=== PATIENT | female | born 1985 | race Caucasian/White ===

== ENCOUNTER → 2017-03-26 | Outpatient (CLI) | payer OTHER | LOC: HPND 08:47 | PROVIDERS: ATTEND Obstetrics & Gynecology | DX: O36.5920 Maternal care for other known or suspected poor fetal growth, second trimester, not applicable or unspecified (principal) | CPT/HCPCS: 76816 ==

== ENCOUNTER → 2017-04-23 | Outpatient (CLI) | payer OTHER | LOC: HPND 14:29 | PROVIDERS: ATTEND Obstetrics & Gynecology | DX: O36.5930 Maternal care for other known or suspected poor fetal growth, third trimester, not applicable or unspecified (principal) | CPT/HCPCS: 76816 ==

== ENCOUNTER 2017-05-04 11:09 | Emergency (ER) | payer OTHER ==
--- NOTE | 2017-05-04 12:12 | PD ---
HPI Chief Complaint Possible elevated blood pressure Date Seen: May 04, 2017 Time Seen: 12:06 Travel History International Travel<30 Days: No Contact w/Intl Traveler<30Days: No Known Affected Area: No History of Present Illness HPI 31-year-old primigravida at 33 weeks 2 days gestation who was at the local pharmacy and checked her blood pressure and she thought it was high. She denies headache, visual changes, abdominal pain. She reports good movement. History Past Medical History Narrative Medical Mild asthma for which she uses albuterol Obstetric History Obstetric History Primigravida cared for by Dr. Cheng. Uncomplicated to this point. Past Surgical History Surgical History: No Previous Surgery Family History Family History: Negative Social History Alcohol Use: No Tobacco Use: No Substance Abuse: No Review of Systems Except as stated in HPI: all other systems reviewed are Neg Physical Exam Narrative GENERAL: Well-nourished, well-developed patient. SKIN: Warm and dry. HEAD: Normocephalic and atraumatic. EYES: No scleral icterus. No injection or drainage. ENT: No nasal drainage noted. Mucous membranes pink. Airway patent. NECK: Supple, trachea midline. No JVD. CARDIOVASCULAR: Regular rate and rhythm without murmurs, gallops, or rubs. RESPIRATORY: Breath sounds equal bilaterally. No accessory muscle use. ABDOMEN/GI: Abdomen soft, non-tender, bowel sounds present, no rebound, no guarding Gravid to [-] weeks size Fundal Height: [-] GENITOURINARY: External Genitalia: intact and normal in appearance BUS glands: [-] Cervix: [-] Dilatation: [-] Effacement: [-] Station: [-] Presentation: [-] Membranes: [intact or ruptured] Uterine Contractions: [No-] FHT's: Category: [-] Baseline: [-] Reactive: [-Yes] Variability: [-] Decels: [-] EXTREMITIES: No cyanosis or edema. BACK: Nontender without obvious deformity. No CVA tenderness. NEUROLOGICAL: Awake and alert. Motor and sensory grossly within normal limits. Five out of 5 muscle strength in all muscle groups. Normal speech. Data Data Vital Signs Reviewed: Yes MDM Medical Record Reviewed: Yes Narrative Course / MDM Assessment: 33+ week intrauterine without evidence of hypertension. Plan: Routine care was recommended. Signs and symptoms of PIH were reviewed. Diagnosis Diagnosis: Primary Impression: 33 weeks gestation of Additional Impression: rule out hypertension Disposition: 01 DISCHARGE HOME Condition: Good Yon Gauthier MD May 04, 2017 12:12
[2017-05-04 12:36] LABS: BACTERIA, URINE RARE /hpf; BLOOD, URINE NEG (NEG); COMMENT (UR) CULT NOT INDICATED; CULTURE IF INDICATED CULT NOT INDICATED; GLUCOSE,URINE NEG (NEG); KETONE, URINE NEG (NEG); MUCUS URINE FEW /lpf (OCC); NITRITE,URINE NEG (NEG); SQUAMOUS EPITHELIAL CELL URINE 1 /hpf (0-5)
[2017-05-04 12:38] LABS: URINE COLOR STRAW (YELLW/STRAW)
== END 2017-05-04 12:30 | disposition home or self-care (01) ==
LOC: HOBED 11:09
DX: Z34.93 Encounter for supervision of normal pregnancy, unspecified, third trimester (principal); J45.909 Unspecified asthma, uncomplicated; Z3A.33 33 weeks gestation of pregnancy
CPT/HCPCS: 59025; 81001

== ENCOUNTER → 2017-05-21 | Outpatient (CLI) | payer OTHER | LOC: HPND 08:52 | PROVIDERS: ATTEND Obstetrics & Gynecology | DX: O36.5930 Maternal care for other known or suspected poor fetal growth, third trimester, not applicable or unspecified (principal) | CPT/HCPCS: 76816 ==

== ENCOUNTER 2017-06-06 17:42 | Inpatient (IN) | payer OTHER ==
[~2017-06-06] VITALS: Ht 170.2 cm; Wt 98.0 kg
[2017-06-06] MEDS ORDERED: PRENTAB7 (18:20)
[2017-06-06] MEDS ORDERED: SODIUM CHLORIDE 0.9% FLUSH 10 ML FLUSH IV FLUSH PRN (18:30)
[2017-06-06] MEDS ORDERED: LACTATED RINGER'S 1000 ML INJ 1,000 ML IV PRN (18:30)
[2017-06-06] MEDS ORDERED: SODIUM CHLORID 0.9% 500 ML INJ 500 ML IV PRN (18:30)
[2017-06-06] MEDS ORDERED: SODIUM CHLOR 0.9% 1000 ML INJ 1,000 ML IV PRN (18:30)
--- NOTE | 2017-06-06 18:30 | HHI.HP ---
HPI Chief Complaint elevated blood pressure, new 2+edema, gestational hypertension, for term labor induction Date Seen: Jun 06, 2017 Travel History International Travel<30 Days: No Contact w/Intl Traveler<30Days: No Known Affected Area: No History of Present Illness HPI 31 yo G1 EDC 06/15/17, EGA 38w5d today, seen in office for 48h recheck after being seen Sunday with c/o new b/l LE pitting edema to shins, BP 138/88 with recheck 142/84. Pt was given precautions and sent for PIH lab which were wnl. On BP recheck today pressures remain elevated at 136/90. Diagnosis of gestational hypertension, d/w pt indication for delivery. C/o pelvic pressure but no regular contractions, pain 1/10 mild pelvic discomfort. Denies headache , RUQ pain, blurry vision. Endorses edema b/l lower extremities. No vaginal bleeding. Good movement. No leakage of fluid. 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 Alcohol Use: No Tobacco Use: No Substance Abuse: No Allergies-Medications (Allergen,Severity, Reaction): Coded Allergies: No Known Allergies (Verified Allergy, Severe, 05/04/17) Home Meds Reported Medications Pnv No.95/Ferrous Fum/Folic AC ( Vitamins Tablet) 28 Mg Iron-800 Mcg Tablet 06/06/17 Review of Systems General / Constitutional: Weight Gain, No: Fever, Chills, Other Eyes: No: Diploplia, Blurred Vision, Visual changes, Pain, Photophobia HENT: No: Headaches, Vertigo, Lightheadedness Cardiovascular: Edema, No: Irregular Rhythm, Chest Pain or Discomfort, Palpitations, Tachycardia, Syncope, Varicosities, Cyanosis Respiratory: No: Cough, Short of Breath, Other Gastrointestinal: No: Nausea, Vomiting, Diarrhea Genitourinary: Pelvic Pain, No: Decreased Urinary Output, Oliguria Musculoskeletal: Edema, No: Limited ROM, Weakness, Cramping, Pain Skin: No Rash, Itching (legs), No Dryness, No Lumps, No Change in Pigmentation , No Change in Nails, No Alopecia, No Lesions Neurologic: No: Weakness, Dizziness, Syncope, Focal Abnormalities, Coordination Problem, Headache, Slurred Speech, Seizures Psychiatric: No: Depression, Suicidal Ideations, Homicidal Ideation Endocrine: No: Heat Intolerance, Cold Intolerance, Polydipsia, Polyuria, Other Physical Exam Narrative GENERAL: Well-nourished, well-developed patient. Appears puffy in face, hands, ankles & feet SKIN: Warm and dry. HEAD: Normocephalic and atraumatic. EYES: No scleral icterus. No injection or drainage. ENT: No nasal drainage noted. Mucous membranes pink. Airway patent. NECK: Supple, trachea midline. No JVD. CARDIOVASCULAR: Regular rate and rhythm without murmurs, gallops, or rubs. RESPIRATORY: Breath sounds equal bilaterally. No accessory muscle use. BREASTS: deferred. ABDOMEN/GI: Abdomen soft, non-tender, bowel sounds present, no rebound, no guarding Gravid to [39] weeks size Fundal Height: [39] GENITOURINARY: External Genitalia: intact and normal in appearance BUS glands: [wnl] Cervix: [mid] Dilatation: [FT] Effacement: [30] Station: [-3] Presentation: [vtx] Membranes: [intact] Uterine Contractions: [none] FHT's: 150s in office EXTREMITIES: No cyanosis; +2 edema to shins b/l, pitting. BACK: Nontender without obvious deformity. No CVA tenderness. NEUROLOGICAL: Awake and alert. Motor and sensory grossly within normal limits. Five out of 5 muscle strength in all muscle groups. Normal speech. Caprini VTE Risk Assessment Caprini VTE Risk Assessment: No/Low Risk (score <= 1) VTE Pharm Contraindication: High risk for bleeding Caprini Risk Assessment Model Point Value = 1 Point Value = 2 Point Value = 3 Point Value = 5 Age 41-60 Minor surgery BMI > 25 kg/m2 Swollen legs Varicose veins or History of unexplained or recurrent spontaneous Oral contraceptives or hormone replacement Sepsis (< 1 month) Serious lung disease, including pneumonia (< 1 month) Abnormal pulmonary function Acute myocardial infarction Congestive heart failure (< 1 month) History of inflammatory bowel disease Medical patient at bed rest Age 61-74 Arthroscopic surgery Major open surgery (> 45 min) Laparoscopic surgery (> 45 min) Malignancy Confined to bed (> 72 hours) Immobilizing plaster cast Central venous access Age >= 75 History of VTE Family history of VTE Factor V Leiden Prothrombin [id number] Lupus anticoagulant Anticardiolipin antibodies Elevated serum homocysteine Heparin-induced thrombocytopenia Other congenital or acquired thrombophilia Stroke (< 1 month) Elective arthroplasty Hip, pelvis, or leg fracture Acute spinal cord injury (< 1 month) Prophylaxis Regimen Total Risk Factor Score Risk Level Prophylaxis Regimen 0-1 Low Early ambulation 2 Moderate Order ONE of the following: *Sequential Compression Device (SCD) *Heparin 5000 units SQ BID 3-4 Higher Order ONE of the following medications: *Heparin 5000 units SQ TID *Enoxaparin/Lovenox 40 mg SQ daily (WT < 150 kg, CrCl > 30 mL/min) *Enoxaparin/Lovenox 30 mg SQ daily (WT < 150 kg, CrCl > 10-29 mL/min) *Enoxaparin/Lovenox 30 mg SQ BID (WT < 150 kg, CrCl > 30 mL/min) AND/OR *Sequential Compression Device (SCD) 5 or more Highest Order ONE of the following medications: *Heparin 5000 units SQ TID (Preferred with Epidurals) *Enoxaparin/Lovenox 40 mg SQ daily (WT < 150 kg, CrCl > 30 mL/min) *Enoxaparin/Lovenox 30 mg SQ daily (WT < 150 kg, CrCl > 10-29 mL/min) *Enoxaparin/Lovenox 30 mg SQ BID (WT < 150 kg, CrCl > 30 mL/min) AND *Sequential Compression Device (SCD) Data Data Vital Signs Reviewed: Yes Orders Orders Admit To Inpatient (06/06/17 ) Code Status (06/06/17 18:15) Vital Signs (Adult) .Per protocol (06/06/17 18:15) Activity Oob Ad [place] (06/06/17 18:15) Heart (06/06/17 18:15) Amnioinfusion (06/06/17 18:15) Urinary Catheter Management .ONCE (06/06/17 18:15) Diet Liquid (06/06/17 Dinner) Lactated Ringer's 1000 Ml Inj (Lr 1000 M (06/06/17 18:15) Lactated Ringer's 1000 Ml Inj (Lr 1000 M (06/06/17 18:15) Sodium Chlorid 0.9% 500 Ml Inj (Ns 500 M (06/06/17 18:15) Sodium Chlor 0.9% 1000 Ml Inj (Ns 1000 M (06/06/17 18:35) Lidocaine 1% Inj (50 Ml) (Xylocaine 1% I (06/06/17 18:15) Citric Acid-Sodium Citrate Liq (Bicitra (06/06/17 18:15) Ondansetron Inj (Zofran Inj) (06/06/17 18:15) Fentanyl Inj (Fentanyl Inj) (06/06/17 18:15) Fentanyl Inj (Fentanyl Inj) (06/06/17 18:15) Complete Blood Count With Diff (06/06/17 18:15) Hold Clot (06/06/17 18:15) Urinalysis - C+S If Indicated (06/06/17 18:15) Drug Screen, Random Urine (06/06/17 18:15) Resp Oxygen Non Rebreathe Mask (06/06/17 ) ^ Epidural / Intrathecal Infus (06/06/17 18:15) Oxytocin 30 Units-500ml Premix (Pitocin (06/06/17 18:15) Lidocaine 1% Inj (50 Ml) (Xylocaine 1% I (06/06/17 18:15) Light Mineral Oil (Muri-Lube Oil) (06/06/17 18:15) ^ Labor Induction (06/06/17 18:15) ^ Vaginal Insert (06/06/17 18:15) ^ Vaginal Lavage (06/06/17 18:15) Heart (06/06/17 18:15) Sodium Chloride 0.9% Flush (Ns Flush) (06/06/17 21:00) Sodium Chloride 0.9% Flush (Ns Flush) (06/06/17 18:15) Dinoprostone Vag Insert (Cervidil Vag In (06/06/17 18:15) Intake + Output Q1H (06/06/17 18:15) Notify Parameters (06/06/17 18:15) Comprehensive Metabolic Panel (06/06/17 18:15) Uric Acid (06/06/17 18:15) Inpatient Certification (06/06/17 ) Specimen To Be Collected PRN (06/06/17 18:15) Specimen To Be Collected PRN (06/06/17 18:15) Group B Strep: Negative Assessment/Plan Problem List: (1) Gestational hypertension affecting first ICD Codes: O13.9 - Gestational [-induced] hypertension without significant proteinuria, unspecified trimester Status: Acute Assessment and Plan 31 yo G1 with coates iup at 38w5d admit for IOL due to gestational hypertension 1) IOL: unfavorable Scott score, pt aware of risks of failed induction, possibility of prolonged induction or need for ; verbalizes understanding and consents to induction; will plan cervidil overnight, re- evaluate in AM for additional methods as indicated 2) GHTN: new onset elevated BPs, none severe, PIH labs as outpt wnl 06/05/17; will repeat as inpatient; continue to monitor closely for need for medication or additional interventions 3) GBS negative 4) status: vertex, female; EFW 7#; had been measuring S<D in office but MFM eval 05/21/17 showed EFW 30% and AC 10%tile; +FHTs in office 5) dispo: not meeting criteria, anticipate d/c day #2-3 Discharge Planning day 2-3 Belkis Nolan MD Jun 06, 2017 18:30
[2017-06-06] MEDS ORDERED: LIDOCAINE HCL 1% 50 ML VIAL I-DERMAL PRN (18:45)
[2017-06-06] MEDS ORDERED: ONDANSETRON HCL 4 MG/2 ML VIAL IV PUSH PRN (18:45)
[2017-06-06] MEDS ORDERED: LIDOCAINE HCL 1% 50 ML VIAL INFIL PRN (18:45)
[2017-06-06] MEDS ORDERED: DINOPROSTONE 10 MG VAG INSERT VAGINAL ONE (18:45)
[2017-06-06] MEDS ORDERED: OXYTOCIN 30 UNITS-500ML PREMIX 500 ML IV ONE (18:45)
[2017-06-06] MEDS ORDERED: MINERAL OIL 10 ML VIAL TOPICAL PRN (18:45)
[2017-06-06] MEDS ORDERED: CITRIC ACID-SODIUM CITRATE LIQ 30 ML UDC PO SCH (18:45)
[2017-06-06 19:00] LABS: AUTOMATED NEUTROPHIL # 8.9 TH/MM3 (1.8-7.7); BASOPHIL % 0.2 % (0.0-2.0); EOSINOPHIL # 0.2 TH/MM3 (0-0.4); EOSINOPHIL % 1.8 % (0.0-4.0); HEMO FLAGS DIFF FINAL; LYMPH % 15.6 % (9.0-44.0); LYMPHOCYTE # 1.8 TH/MM3 (1.0-4.8); MEAN CELL VOLUME 75.1 FL (80.0-100.0); MEAN CORPUSCULAR HEMOGLOBIN 23.4 PG (27.0-34.0); MEAN CORPUSCULAR HGB CONC 31.1 % (32.0-36.0); MONO % 6.4 % (0.0-8.0); PLATELET COUNT 247 TH/MM3 (150-450); RED BLOOD COUNT 4.12 MIL/MM3 (4.00-5.30); RED CELL DISTRIBUTION WIDTH 18.2 % (11.6-17.2); WHITE BLOOD COUNT 11.7 TH/MM3 (4.0-11.0)
[2017-06-06 19:02] LABS: BLOOD, URINE NEG (NEG); COMMENT (UR) CULT NOT INDICATED; CULTURE IF INDICATED CULT NOT INDICATED; GLUCOSE,URINE NEG (NEG); KETONE, URINE 10 mg/dL (NEG); MUCUS URINE FEW /lpf (OCC); NITRITE,URINE NEG (NEG); PH, URINE 5.5 (5.0-8.5); SQUAMOUS EPITHELIAL CELL URINE 1 /hpf (0-5); URINE COLOR LIGHT-YELLOW (YELLW/STRAW)
[2017-06-06 19:30] VITALS: BP 121/82; PULSE 107; RESP 18; TEMP 98.8
[2017-06-06] MEDS: LACTATED RINGER'S 1000 ML INJ 1,000 ML IV SCH (20:24)
[2017-06-06] MEDS: SODIUM CHLORIDE 0.9% FLUSH 10 ML FLUSH IV FLUSH SCH (21:00)
[2017-06-06 21:48] LABS: AUTOMATED NEUTROPHIL # 8.4 TH/MM3 (1.8-7.7); BASOPHIL # 0.1 TH/MM3 (0-0.2); EOSINOPHIL # 0.2 TH/MM3 (0-0.4); EOSINOPHIL % 1.9 % (0.0-4.0); HEMATOCRIT 30.7 % (35.0-46.0); HEMO FLAGS DIFF FINAL; LYMPH % 18.9 % (9.0-44.0); LYMPHOCYTE # 2.3 TH/MM3 (1.0-4.8); MEAN CELL VOLUME 74.3 FL (80.0-100.0); MEAN CORPUSCULAR HEMOGLOBIN 23.1 PG (27.0-34.0); MONO % 7.9 % (0.0-8.0); NEUT % 70.3 % (16.0-70.0); PLATELET COUNT 260 TH/MM3 (150-450); RED BLOOD COUNT 4.13 MIL/MM3 (4.00-5.30); RED CELL DISTRIBUTION WIDTH 17.8 % (11.6-17.2); WHITE BLOOD COUNT 11.9 TH/MM3 (4.0-11.0)
[2017-06-06 22:17] LABS: ANION GAP 8 MEQ/L (5-15); AST (GOT) 29 U/L (15-37); BICARBONATE 21.9 MEQ/L (21.0-32.0); BLOOD UREA NITROGEN 6 MG/DL (7-18); CHLORIDE 107 MEQ/L (98-107); GLOMERULAR FILTRATION RATE 176 ML/MIN (>89); POTASSIUM 3.7 MEQ/L (3.5-5.1); SODIUM (NA) 137 MEQ/L (136-145); URIC ACID 4.1 MG/DL (2.6-6.0)
[2017-06-06 22:20] LABS: ALKALINE PHOSPHATASE 179 U/L (45-117); ALT (GPT) 21 U/L (10-53); TOTAL BILIRUBIN ADULT 0.3 MG/DL (0.2-1.0)
[2017-06-07] VITALS (17 sets, daily range): BP systolic 109–126; BP diastolic 61–87; PULSE 93–120; RESP 14–20; TEMP 97.6–98.4
[2017-06-07] MEDS: SODIUM CHLORIDE 0.9% FLUSH 10 ML FLUSH IV FLUSH SCH ×2 (09:00→22:32)
[2017-06-07] MEDS: LACTATED RINGER'S 1000 ML INJ 1,000 ML IV SCH ×2 (09:15→18:30)
[2017-06-07] MEDS: OXYTOCIN 30 UNITS/NS 500ML PREMIX IV SCH (09:46)
--- NOTE | 2017-06-07 12:07 | PD.LABORPN ---
Subjective Subjective Seen this morning at 7:30 after receiving report from head nurse, stating patient does not meet criteria for induction. Reviewed chart and discussed with Dr. Nolan. Venkatesh went from normal BPs to 140s over 90s in our office with a 6 pound weight gain and pitting edema in the office. She was sent here for cervidil last evening and labs and BPs reassuring. This am, cervix was long and closed. I reviewed situation with Venkatesh and her spouse. We did a oxytocin stress test while I was in the OR. Baby tolerated well with category 1 strip with some tachycardia. Cervix now 50/1/-2 and membranes stripped. All agree she is leaning toward pre eclampsia but we can take time to ripen cervix. GFM. no NV , JOSEPH or blurred vision. No RUQT. No leaking or bleeding. Objective Vital Signs Vital Signs Date Time Temp Pulse Resp B/P (MAP) Pulse Ox O2 Delivery O2 Flow Rate FiO2 06/07/17 11:00 120 122/79 (93) 06/07/17 10:40 108 112/70 (84) 06/07/17 10:20 115 119/74 (89) 06/07/17 10:00 118 123/74 (90) 06/07/17 09:43 117 114/71 (85) 06/07/17 07:51 98.4 18 06/07/17 07:22 104 121/80 (94) 06/07/17 04:43 93 06/07/17 04:30 93 16 119/70 (86) 06/07/17 04:30 98.1 Objective 1/50/-2 and stripped (GBS negative) pelvis clinically adequate EFW 7 pounds strip category one 1+ edema Weeks Gestation: 39 Gest Age Assessed Date: Jun 07, 2017 Gest Age Assessed Time: 12:05 Pt started active labor?: No Medical induction of labor?: Yes Medical induction start date: Jun 06, 2017 Medical induction start time: 18:00 Artificial rupture of membrane: No Assessment/Plan Problem List: (1) Gestational hypertension affecting first ICD Codes: O13.9 - Gestational [-induced] hypertension without significant proteinuria, unspecified trimester Status: Acute Plan: stop oxytocin eat lunch repeat cervidil yoga ball anticipate serial induction. Discussed in length with Dr. Nolan and parents. Susan Reyes MD Jun 07, 2017 12:07
[2017-06-07] MEDS ORDERED: DINOPROSTONE 10 MG VAG INSERT VAGINAL ONE (14:00)
[2017-06-08] VITALS (33 sets, daily range): BP systolic 98–135; BP diastolic 49–103; PULSE 93–129; RESP 14–18; TEMP 97.6–98.9
[2017-06-08] MEDS: LACTATED RINGER'S 1000 ML INJ 1,000 ML IV SCH ×4 (02:30→22:42)
[2017-06-08] MEDS ORDERED: OXYTOCIN 30 UNITS/NS 500ML PREMIX IV SCH (03:15)
[2017-06-08] MEDS: SODIUM CHLORIDE 0.9% FLUSH 10 ML FLUSH IV FLUSH SCH ×2 (09:00→20:30)
--- NOTE | 2017-06-08 09:33 | HHI.PR ---
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 FHTs: 130s, moderate variability, accelerations present, no decelerations TOCO: Rare contractions appreciated A/P 31-year-old G1 at 39 weeks and 0 days here today for induction of labor for gestational hypertension 1. Intrauterine : Category 1 tracing -Cephalic, GBS negative, EFW prior to 7.5-8 pounds. - Female fetus 2. Induction of labor: Secondary to #3, cervix unfavorable status post Cervidil 2 and low-dose Pitocin overnight, Cook cath placed this a.m., 80 cc 2 , did have bleeding that is more than normal following placement, status reassuring, placenta posterior. Will continue to observe for any iatrogenic abruption, repeat CBC in 4 hours. 3. Gestational hypertension: Negative HELLP labs and P:C 0.16. Blood pressures were normotensive overnight ,continue observation. 4. Microcytic anemia: Type and screen, repeat CBC at 2 PM today due to bleeding appreciated with balloon catheter placement, concern that could be concealed bleeding with balloon in place and will follow up Hb. Pepe Sellers MD Jun 08, 2017 09:33
[2017-06-08 14:45] LABS: AUTOMATED NEUTROPHIL # 10.1 TH/MM3 (1.8-7.7); BASOPHIL % 0.3 % (0.0-2.0); EOSINOPHIL # 0.3 TH/MM3 (0-0.4); HEMATOCRIT 28.6 % (35.0-46.0); HEMO FLAGS DIFF FINAL; LYMPH % 11.6 % (9.0-44.0); LYMPHOCYTE # 1.5 TH/MM3 (1.0-4.8); MEAN CELL VOLUME 74.6 FL (80.0-100.0); MEAN CORPUSCULAR HEMOGLOBIN 23.3 PG (27.0-34.0); MEAN CORPUSCULAR HGB CONC 31.2 % (32.0-36.0); MONO % 7.1 % (0.0-8.0); PLATELET COUNT 236 TH/MM3 (150-450); RED BLOOD COUNT 3.84 MIL/MM3 (4.00-5.30); WHITE BLOOD COUNT 12.8 TH/MM3 (4.0-11.0)
[2017-06-08] MEDS: OXYTOCIN 30 UNITS/NS 500ML PREMIX IV SCH (22:44)
[2017-06-09] VITALS (83 sets, daily range): BP systolic 94–140; BP diastolic 57–98; PULSE 91–121; RESP 14–20; TEMP 98–99.7
[2017-06-09 04:47] LABS: AUTOMATED NEUTROPHIL # 8.6 TH/MM3 (1.8-7.7); BASOPHIL # 0.1 TH/MM3 (0-0.2); EOSINOPHIL # 0.3 TH/MM3 (0-0.4); EOSINOPHIL % 2.8 % (0.0-4.0); HEMO FLAGS DIFF FINAL; LYMPH % 18.9 % (9.0-44.0); LYMPHOCYTE # 2.3 TH/MM3 (1.0-4.8); MEAN CORPUSCULAR HEMOGLOBIN 23.2 PG (27.0-34.0); MONO % 6.9 % (0.0-8.0); NEUT % 70.4 % (16.0-70.0); PLATELET COUNT 222 TH/MM3 (150-450); RED BLOOD COUNT 3.86 MIL/MM3 (4.00-5.30); WHITE BLOOD COUNT 12.2 TH/MM3 (4.0-11.0)
--- NOTE | 2017-06-09 07:48 | HHI.PR ---
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 O: Exam: 3 cm/50/-3/medium/posterior FHTs: 130s, moderate variability, accelerations present, no decelerations TOCO: Rare contractions appreciated A/P 31-year-old G1 at 39 weeks and 1 days here today for induction of labor for gestational hypertension 1. Intrauterine : Category 1 tracing -Cephalic, GBS negative, EFW prior to 7.5-8 pounds. - Female fetus 2. Induction of labor: Secondary to #3, s/p cervidl x 2, cook cath, AROM this check, clear fluid. Continue pit. Will desire epidural at some point, regular diet for breakfast then CLD. 3. Gestational hypertension: Negative HELLP labs and P:C 0.16. Blood pressures were normotensive overnight ,continue observation. 4. Microcytic anemia: T&C x2, repeat CBC this AM stable. Pepe Sellers MD Jun 09, 2017 07:48
[2017-06-09] MEDS ORDERED: fentaNYL 2MCG-BUPIV 0.125% INJ 100 ML ONE ×2 (11:34→18:30)
[2017-06-10] VITALS (25 sets, daily range): BP systolic 104–135; BP diastolic 61–85; PULSE 94–136; RESP 14–20; TEMP 98.2–100.2; O2SAT 96–99
[2017-06-10] MEDS ORDERED: fentaNYL 2MCG-BUPIV 0.125% INJ 100 ML ONE (00:53)
[2017-06-10] MEDS ORDERED: BUPIVACAINE HCL PF 0.25% 10 ML VIAL ONE (02:04)
[2017-06-10] MEDS ORDERED: AZITHROMYCIN INJ 500 MG in SODIUM CHLOR 0.9% 250 ML INJ 250 ML IV STA (02:37)
[2017-06-10] MEDS ORDERED: CITRIC ACID-SODIUM CITRATE LIQ 30 ML UDC PO SCH (02:45)
[2017-06-10] MEDS ORDERED: ceFAZolin 2 GM PREMIX 50 ML IV SCH (02:45)
[2017-06-10] MEDS ORDERED: LACTATED RINGER'S 1000 ML IV ONE (02:45)
[2017-06-10] MEDS ORDERED: LACTATED RINGER'S 1000 ML IV SCH (02:45)
[2017-06-10] MEDS ORDERED: METHYLERGONOVINE MALEATE 0.2 MG/ML VIAL ONE (02:50)
[2017-06-10] MEDS ORDERED: OXYTOCIN 10 UNIT/ML AMP ONE (02:50)
[2017-06-10] MEDS ORDERED: CARBOPROST TROMETHAMINE 250 MCG/ML VIAL ONE (02:50)
--- NOTE | 2017-06-10 03:26 | HHI.PR ---
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 Overall feels well O: Exam: Deferred, FHTs: 150s, moderate variability, accelerations present, no decelerations TOCO: Contractions every 3-5, M.D. less than 200 A/P 31-year-old G1 at 39 weeks and 2 days here today for induction of labor for gestational hypertension 1. Intrauterine : Category 1 tracing -Cephalic, GBS negative, EFW prior to 7.5-8 pounds. - Female fetus 2. Failed induction of labor: s/p cervidl x 2, cook cath, AROM on 06/09 at 0730 , no change and signicant caput per nursing, comfortable with epidural. - consented for . Will have uterotonics in room, ancef and azithro for ppx. Pt has had low grade temp, nothing diagnostic of intra-amniotic infection, however patient has risk factors for this, will continue to monitor following delivery. 3. Gestational hypertension: Negative HELLP labs and P:C 0.16. Blood pressures were normotensive overnight ,continue observation. 4. Microcytic anemia: T&C x2, repeat CBC yesterday AM stable. Pepe Sellers MD Jun 10, 2017 03:26
[2017-06-10] MEDS ORDERED: ACETAMINOPHEN 1000 MG/100 ML 100 ML IV ONE (04:15)
[2017-06-10] MEDS ORDERED: MEPERIDINE HCL 25 MG/ML VIAL ONE (04:15)
[2017-06-10] MEDS ORDERED: ACETAMINOPHEN 325 MG TAB PO PRN (04:45)
[2017-06-10] MEDS ORDERED: KETOROLAC TROMETHAMINE 60 MG/2 ML (IM) VIAL IM PRN (04:45)
[2017-06-10] MEDS ORDERED: ONDANSETRON HCL 4 MG/2 ML VIAL IV PUSH PRN (04:45)
[2017-06-10] MEDS ORDERED: SODIUM CHLORIDE 0.9% FLUSH 10 ML FLUSH IV FLUSH PRN (04:45)
[2017-06-10] MEDS ORDERED: SIMETHICONE 80 MG CHEWABLE TAB PO PRN (04:45)
[2017-06-10] MEDS ORDERED: OXYTOCIN 30 UNITS-500ML PREMIX 500 ML IV ONE (04:45)
[2017-06-10] MEDS ORDERED: ZOLPIDEM TARTRATE 5 MG TAB PO PRN (04:45)
--- NOTE | 2017-06-10 04:51 | PD.OB.DELI ---
Procedure Note Section Procedure Pre Op Diagnosis: (1) Failed induction of labor (2) Gestational hypertension affecting first (3) Term Post Op Diagnosis: (1) Gestational hypertension affecting first (2) Failed induction of labor (3) Term Performed by Pepe Sellers Procedure: Primary Low Transverse Sec Indication for delivery: Other (failed IOL) Previous condition: None Informed consent obtained: For anesthesia, For procedure Confirmed correct: Patient, Procedure, Site, Time-out taken Anesthesia: Epidural Medication prior to procedure: As documented in eMAR, Antibiotics, IV (2g Ancef & 500mg IV azithro) Monitoring during procedure: Blood pressure monitoring, Pulse oximetry Urinary catheter: Inserted using sterile technique, ml urine output (200, clear ) Sterile preparation: In usual fashion Position: Supine with wedge to left side Operative Features Skin Incision: Pfannenstiel Uterine Incision: Low transverse w/knife / blunt ext Membranes Ruptured: Previously (AROM on 06/09/17 at 0739), Appearance of fluid (clear) Delivery date: Jun 10, 2017 Delivery time: 03:47 Delivery of infant: Uneventful Infant: Female, Single One Minute : 7 Five Minute : 8 Weight: 3150g Status of infant: Viable, Cord blood Placenta delivered: Intact (3VC) Medications: Antibiotics (as above), Oxytocin, Other (IM 0.2mg Methergine) Estimated blood loss: 600 Procedure tolerated: Well Maternal Complications: Uterine atony Maternal Condition: Stable Condition: Stable Procedure in detail see dictated note, # [id number] Pepe Sellers MD Jun 10, 2017 04:51
[2017-06-10] MEDS ORDERED: KETOROLAC TROMETHAMINE 30 MG/ML (IVP) VIAL ONE (05:35)
[2017-06-10] MEDS: KETOROLAC TROMETHAMINE 60 MG/2 ML (IM) VIAL IM SCH ×3 (05:40→14:53)
--- NOTE | 2017-06-10 06:50 | MP ---
cc: ALISON CASTRO MD DATE OF : 1985 DATE OF SURGERY: 06/10/2017 PREOPERATIVE DIAGNOSIS: 1. Intrauterine at 39 weeks, two days. 2. Failed induction of labor. 3. Gestational hypertension. 4. Anemia POSTOPERATIVE DIAGNOSIS: 1. Same as above and below 2. Status post delivery via section. OPERATION: Primary low transverse section. SURGEON: Dr. Alison Castro MANAGER CODING SURGEON: None. FINDINGS: 1. Viable female at 0347, Apgars 7 and 8, normal anatomy, intact placenta, three vessel cord, 0348. 2. Normal intra-abdominal anatomy, uterus, bilateral fallopian tubes normal appearing. 3. Uterine atony. ANTIBIOTICS: 2g Ancef and 500 milligrams IV azithromycin preoperatively. SPECIMEN: Placenta to disposal. ANESTHESIA: Epidural. ESTIMATED BLOOD LOSS: 600 cc URINE OUTPUT: 200 cc clear via Brewer. IV FLUIDS: 1100 cc lactated Ringer's and Pitocin. MEDICATIONS: 0.2 milligrams IM Methergine for uterine atony. DVT PROPHYLAXIS Sequential compression devices. TIME OUT: Done. COUNTS: Correct x2. COMPLICATIONS: None. DISPOSITION: Stable to PACU. INDICATIONS: This patient is a 31 year-old G1, now P1-0-0-1, who presented four days ago for induction of labor secondary to a diagnosis of gestational hypertension. Her induction began with Cervidil. She received two doses, then A Cook catheter was placed. She was artificially ruptured after removal with clear fluid and began Pitocin. This was continued overnight and the patient's cervix remained unchanged at 5/50/-3, with significant caput, in addition she never reached adequate MVUs. The patient offered continued Pitocin versus and the patient desired . DESCRIPTION OF PROCEDURE: The patient was positioned in left lateral tilt. The abdomen was prepped and draped in sterile fashion. Brewer was inserted. Anesthesia was found to be adequate. Pfannenstiel incision was made and sharply dissected down to the fascia which was nicked on either side of the midline and extended bilaterally with Quezada scissors, dissected off the rectus muscles superiorly and inferiorly without difficulty. The peritoneal cavity was entered digitally and extended laterally with blunt traction. A bladder flap was developed with Metzenbaum scissors in the lower uterine segment and a low transverse hysterotomy was made in a curvilinear fashion, extended in a cephalad caudal fashion. Physician's hand was inserted into the uterine cavity and head was elevated to the hysterotomy and with fundal pressure the head was delivered without difficulty followed by gentle downward and upward guidance for the anterior and posterior shoulders respectively and the torso and lower extremities were delivered with ease. The had spontaneous cry. The cord was clamped and cut. The placenta was delivered with traction and uterine massage. The uterus was exteriorized and cleared for clot and debris, and closed with a single running locking layer of 0 Vicryl. There was some oozing medial to the right edge and hemostasis was achieved with [id number] 0 Vicryl. The uterus was returned to the abdomen. The pericolic gutters were irrigated and the hysterotomy was found to be hemostatic. The fascia was closed with 0 Vicryl from left to right in a running unlocked fashion. The subcutaneous tissue was irrigated. Hemostasis was appreciated. The subcutaneous tissue was reapproximated with running 2-0 Vicryl and the skin was closed with 4-0 Monocryl in a subcuticular fashion. Steri-Strips and dressings were applied. The patient tolerated the procedure well and was transferred to PACU in stable condition. MD AMANDA Mcdowell/MARJORIE /4:44 AM /5:47 AM MTDZechariah
--- NOTE | 2017-06-10 08:13 | HHI.OB ---
Subjective Post Operative Day: 0 Remarks doing well, pain controlled, no complaints, not much appetite yet, cardenas in and SCDs on. Objective Vitals/I&O Vital Signs Date Time Temp Pulse Resp B/P (MAP) Pulse Ox O2 Delivery O2 Flow Rate FiO2 06/10/17 06:35 130/84 (99) 06/10/17 06:35 99.0 106 18 97 06/10/17 05:50 18 06/10/17 05:45 94 111/68 (82) 97 06/10/17 05:35 18 06/10/17 05:35 98.9 97 116/65 (82) 99 06/10/17 05:20 18 06/10/17 05:20 96 06/10/17 05:18 113 115/61 (79) 06/10/17 05:05 16 06/10/17 05:05 96 06/10/17 05:05 112 104/67 (79) 06/10/17 04:50 98 06/10/17 04:50 118/66 (83) 06/10/17 04:50 114 18 06/10/17 04:36 100.2 20 06/10/17 04:35 100.2 20 06/10/17 04:35 118 128/64 (85) 06/10/17 04:35 99 06/10/17 02:59 116 135/82 (99) 06/10/17 02:58 99.7 20 06/10/17 02:13 99.9 18 06/10/17 02:12 136 117/64 (81) 06/10/17 02:00 99.9 18 06/10/17 01:57 108 119/78 (92) 06/10/17 01:33 18 06/10/17 01:15 18 06/10/17 01:04 110 131/85 (100) 06/10/17 01:04 110 131/85 (100) 06/10/17 00:30 18 06/10/17 00:27 108 123/79 (94) 06/09/17 23:45 99.4 06/09/17 23:45 18 06/09/17 23:36 102 117/73 (88) 06/09/17 23:15 18 06/09/17 23:06 114 134/89 (104) 06/09/17 23:00 18 06/09/17 22:45 104 96/63 (74) 06/09/17 22:08 98.1 06/09/17 22:08 106 96/64 (75) 06/09/17 21:33 110 112/73 (86) 06/09/17 20:57 98 109/63 (78) 06/09/17 20:45 18 06/09/17 20:30 98 110/64 (79) 06/09/17 20:15 16 06/09/17 20:12 100 112/71 (85) 06/09/17 20:00 16 06/09/17 19:45 102 18 120/82 (95) 06/09/17 19:35 98.0 06/09/17 19:30 102 123/76 (92) 06/09/17 19:15 108 120/85 (97) 06/09/17 19:00 103 115/78 (90) 06/09/17 18:45 108 128/84 (99) 06/09/17 18:30 111 134/88 (103) 06/09/17 18:28 99.7 20 06/09/17 18:15 107 137/91 (106) 06/09/17 18:00 114 140/82 (101) 06/09/17 17:45 111 129/87 (101) 06/09/17 17:30 104 118/82 (94) 06/09/17 17:15 104 124/78 (93) 06/09/17 17:00 107 124/77 (93) 06/09/17 16:45 117 128/83 (98) 06/09/17 16:30 106 130/84 (99) 06/09/17 16:15 99.2 20 06/09/17 16:15 102 123/86 (98) 06/09/17 16:00 97 102/59 (73) 06/09/17 15:45 100 104/64 (77) 06/09/17 15:30 100 103/60 (74) 06/09/17 15:15 103 108/67 (81) 06/09/17 15:02 99.1 18 06/09/17 15:00 105 128/89 (102) 06/09/17 14:45 108 131/85 (100) 06/09/17 14:30 95 109/76 (87) 06/09/17 14:15 97 112/80 (91) 06/09/17 14:00 100 114/73 (87) 06/09/17 13:45 102 126/86 (99) 06/09/17 13:30 107 130/76 (94) 06/09/17 13:21 109 123/79 (94) 06/09/17 13:15 120 119/73 (88) 06/09/17 13:00 105 114/73 (87) 06/09/17 12:48 120 135/85 (102) 06/09/17 12:45 101 120/81 (94) 06/09/17 12:45 110 06/09/17 12:42 91 125/68 (87) 06/09/17 12:40 106 06/09/17 12:39 114 121/71 (88) 06/09/17 12:36 103 118/72 (87) 06/09/17 12:35 113 06/09/17 12:33 107 108/80 (89) 06/09/17 12:30 112 104/74 (84) 06/09/17 12:30 111 06/09/17 12:27 116 95/75 (82) 06/09/17 12:25 117 06/09/17 12:24 112 123/79 (94) 06/09/17 12:20 121 06/09/17 12:18 124/78 (93) 06/09/17 12:18 121 06/09/17 12:15 117 132/78 (96) 06/09/17 12:15 111 06/09/17 12:08 113 120/98 (105) 06/09/17 12:05 121 136/92 (107) 06/09/17 11:40 98.2 18 06/09/17 11:30 98 119/82 (94) 06/09/17 11:00 110 126/86 (99) 06/09/17 10:30 111 129/97 (108) 06/09/17 10:00 103 124/80 (95) 06/09/17 09:30 113 115/73 (87) 06/09/17 09:24 109 119/70 (86) 06/09/17 09:24 98.3 18 06/09/17 09:15 109 128/84 (99) 06/09/17 09:00 109 140/93 (109) 06/09/17 08:45 99 131/86 (101) 06/09/17 08:30 100 135/90 (105) 06/09/17 08:15 102 121/80 (94) Result Diagram: 06/09/17 0430 06/06/173 Objective Remarks GENERAL: Well-nourished, well-developed patient. CARDIOVASCULAR: Regular rate and rhythm without murmurs, gallops, or rubs. RESPIRATORY: Breath sounds equal bilaterally. No accessory muscle use. ABDOMEN/GI: Abdomen soft, non-tender, bowel sounds present. bandage: Clean, dry and intact. Fundus: Firm, non-tender at umbilicus. GENITOURINARY: Light to moderate bleeding. EXTREMITIES: No cyanosis or edema, non-tender, without signs of DVT. Medications and IVs Current Medications Medications (Trade) Dose Ordered Sig/Demarco Route Start Time Stop Time Status Last Admin (Bicitra Liq) 30 ml CABLE ASSEMBLER AND SWAGER PO 06/06/17 18:45 06/10/17 18:44 (Bicitra Liq) 30 ml CABLE ASSEMBLER AND SWAGER PO 06/10/17 02:45 06/13/17 02:44 Cefazolin Sodium/ Dextrose 50 ml @ 100 mls/hr CABLE ASSEMBLER AND SWAGER IV 06/10/17 02:45 06/13/17 02:44 Lactated Ringer's 1,000 ml @ 100 mls/hr Q10H IV 06/10/17 09:32 06/11/17 05:31 Oxytocin 500 ml @ 100 mls/hr ONCE ONCE IV 06/10/17 04:45 06/10/17 09:44 Oxytocin 500 ml @ 100 mls/hr UNSCH X1 PRN IV 06/10/17 14:45 06/11/17 14:44 (NS Flush) 2 ml BID IV FLUSH 06/10/17 09:00 (NS Flush) 2 ml UNSCH PRN IV FLUSH 06/10/17 04:45 (Mylicon Chew) 80 mg QID PRN PO 06/10/17 04:45 (Tylenol) 650 mg Q6H PRN PO 06/10/17 04:45 (Motrin) 600 mg Q6H PRN PO 06/10/17 04:45 (Toradol Inj) 60 mg UNSCH X1 PRN IM 06/10/17 04:45 06/11/17 04:44 (Toradol Inj) 30 mg Q6H IM 06/10/17 04:45 06/11/17 04:44 06/10/17 05:40 (Percocet 5-325 Mg) 1 tab Q4H PRN PO 06/10/17 04:45 (Percocet 5-325 Mg) 2 tab Q4H PRN PO 06/10/17 04:45 (Cristina-Colace) 2 tab Q12H PRN PO 06/10/17 04:45 (Ambien) 5 mg HS PRN PO 06/10/17 04:45 (M-M-R Ii Inj) 0.5 ml ONCE ONCE SQ 06/11/17 16:00 06/11/17 16:01 (Boostrix Inj) 0.5 ml ONCE ONCE IM 06/11/17 16:00 06/11/17 16:01 (Zofran Inj) 4 mg Q6H PRN IV PUSH 06/10/17 04:45 Assessment/Plan Problem List: (1) Gestational hypertension affecting first ICD Codes: O13.9 - Gestational [-induced] hypertension without significant proteinuria, unspecified trimester Status: Acute Plan: stop oxytocin eat lunch repeat cervidil yoga ball anticipate serial induction. Discussed in length with Dr. Nolan and parents. Assessment and Plan 31-year-old s/p Primary LTCS at 39w2d for failed IOL for GHTN. 1. POD #0: VSS, output appropriate, CBC later today, -female -pt w/ low grade temp, risks for chorio, will continue to follow vitals may need gent / clinda. 2. Gestational hypertension: BPS normotensive. 3. Microcytic anemia: T&C x2. Discharge Planning day 2-3 Pepe Sellers MD Jun 10, 2017 08:13
[2017-06-10] MEDS: SODIUM CHLORIDE 0.9% FLUSH 10 ML FLUSH IV FLUSH SCH (09:00)
[2017-06-10] MEDS ORDERED: LACTATED RINGER'S 1000 ML INJ 1,000 ML IV SCH (09:32)
[2017-06-10] MEDS ORDERED: OXYTOCIN 30 UNITS-500ML PREMIX 500 ML IV PRN (14:45)
[2017-06-10] MEDS: oxyCODONE/ACETAMINOPHEN 5 MG/325 MG TAB PO PRN ×2 (16:54→22:56)
[2017-06-10] MEDS: DOCUSATE SODIUM 50 MG/SENNA 8.6 MG TAB PO PRN (16:54)
[2017-06-10] MEDS: IBUPROFEN 600 MG TAB PO PRN ×2 (16:54→22:56)
[2017-06-10 20:27] LABS: AUTOMATED NEUTROPHIL # 15.6 TH/MM3 (1.8-7.7); BASOPHIL % 0.1 % (0.0-2.0); EOSINOPHIL % 0.1 % (0.0-4.0); HEMATOCRIT 27.7 % (35.0-46.0); HEMO FLAGS DIFF FINAL; LYMPH % 11.2 % (9.0-44.0); LYMPHOCYTE # 2.1 TH/MM3 (1.0-4.8); MEAN CORPUSCULAR HEMOGLOBIN 22.6 PG (27.0-34.0); MEAN CORPUSCULAR HGB CONC 30.5 % (32.0-36.0); MONO % 6.8 % (0.0-8.0); NEUT % 81.8 % (16.0-70.0); PLATELET COUNT 292 TH/MM3 (150-450); RED BLOOD COUNT 3.74 MIL/MM3 (4.00-5.30); WHITE BLOOD COUNT 19.1 TH/MM3 (4.0-11.0)
[2017-06-11] VITALS: BP 98/68; PULSE 95; RESP 18; TEMP 98.8
[2017-06-11 04:00] VITALS: BP 117/70; PULSE 96; RESP 18; TEMP 98.2
[2017-06-11] MEDS: oxyCODONE/ACETAMINOPHEN 5 MG/325 MG TAB PO PRN ×4 (05:11→21:30)
[2017-06-11] MEDS: IBUPROFEN 600 MG TAB PO PRN ×4 (05:11→23:20)
[2017-06-11] MEDS: DOCUSATE SODIUM 50 MG/SENNA 8.6 MG TAB PO PRN ×2 (05:11→21:30)
[2017-06-11 07:39] VITALS: BP 97/61; PULSE 80; RESP 16; TEMP 98.2
--- NOTE | 2017-06-11 08:26 | HHI.OB ---
Subjective Post Operative Day: 1 Remarks doing well Objective Vitals/I&O Vital Signs Date Time Temp Pulse Resp B/P (MAP) Pulse Ox O2 Delivery O2 Flow Rate FiO2 06/11/17 07:39 98.2 80 16 97/61 (73) 06/11/17 04:47 18 06/11/17 04:00 98.2 18 06/11/17 04:00 96 117/70 (86) 06/11/17 00:00 95 98/68 (78) 06/11/17 00:00 98.8 18 06/10/17 19:28 98.3 14 06/10/17 19:27 100 118/67 (84) 06/10/17 16:52 99.2 112 18 126/77 (93) 06/10/17 15:00 99.2 112 16 126/77 (93) Result Diagram: 06/10/171955 Objective Remarks GENERAL: Well-nourished, well-developed patient. CARDIOVASCULAR: Regular rate and rhythm without murmurs, gallops, or rubs. RESPIRATORY: Breath sounds equal bilaterally. No accessory muscle use. ABDOMEN/GI: Abdomen soft, non-tender, bowel sounds present. bandage: Clean, dry and intact. Fundus: Firm, non-tender at umbilicus. GENITOURINARY: Light to moderate bleeding. EXTREMITIES: No cyanosis or edema, non-tender, without signs of DVT. Medications and IVs Current Medications Medications (Trade) Dose Ordered Sig/Demarco Route Start Time Stop Time Status Last Admin (Bicitra Liq) 30 ml CLAY PRODUCTS MACHINE OPERATOR PO 06/10/17 02:45 06/13/17 02:44 Cefazolin Sodium/ Dextrose 50 ml @ 100 mls/hr CLAY PRODU[employer] MACHINE OPERATOR IV 06/10/17 02:45 06/13/17 02:44 Oxytocin 500 ml @ 100 mls/hr UNSCH X1 PRN IV 06/10/17 14:45 06/11/17 14:44 (NS Flush) 2 ml BID IV FLUSH 06/10/17 09:00 (NS Flush) 2 ml UNSCH PRN IV FLUSH 06/10/17 04:45 (Mylicon Chew) 80 mg QID PRN PO 06/10/17 04:45 (Tylenol) 650 mg Q6H PRN PO 06/10/17 04:45 (Motrin) 600 mg Q6H PRN PO 06/10/17 04:45 06/11/17 05:11 (Percocet 5-325 Mg) 1 tab Q4H PRN PO 06/10/17 04:45 06/10/17 16:54 (Percocet 5-325 Mg) 2 tab Q4H PRN PO 06/10/17 04:45 06/11/17 05:11 (Cristina-Colace) 2 tab Q12H PRN PO 06/10/17 04:45 06/11/17 05:11 (Ambien) 5 mg HS PRN PO 06/10/17 04:45 (M-M-R Ii Inj) 0.5 ml ONCE ONCE SQ 06/11/17 16:00 06/11/17 16:01 (Boostrix Inj) 0.5 ml ONCE ONCE IM 06/11/17 16:00 06/11/17 16:01 (Zofran Inj) 4 mg Q6H PRN IV PUSH 06/10/17 04:45 Assessment/Plan Problem List: (1) Gestational hypertension affecting first ICD Codes: O13.9 - Gestational [-induced] hypertension without significant proteinuria, unspecified trimester Status: Acute Assessment and Plan 31-year-old s/p Primary LTCS at 39w2d for failed IOL for GHTN POD #1 OOB, routine post op care, BP low this am. Discharge Planning day 2-3 Attending Attestation pt seen by Masha Mercado MD Jun 11, 2017 08:26
[2017-06-11] MEDS: SODIUM CHLORIDE 0.9% FLUSH 10 ML FLUSH IV FLUSH SCH (09:00)
[2017-06-11 14:53] VITALS: BP 131/82; PULSE 89; RESP 16; TEMP 97.5
[2017-06-11] MEDS ORDERED: DIPHTH/TETANUS/ACEL PERTUSSIS (BOOSTER) 0.5 ML VIAL/PFS IM ONE (16:00)
[2017-06-11] MEDS ORDERED: MEASLES, MUMPS, RUBELLA VACCINE 0.5 ML VIAL SQ ONE (16:00)
[2017-06-11 21:30] VITALS: TEMP 98.1; O2SAT 100
[2017-06-11 22:00] VITALS: BP 136/77; PULSE 103; RESP 20
[2017-06-12] MEDS: oxyCODONE/ACETAMINOPHEN 5 MG/325 MG TAB PO PRN ×3 (02:50→12:38)
[2017-06-12] MEDS: IBUPROFEN 600 MG TAB PO PRN ×2 (06:27→12:38)
[2017-06-12 07:30] VITALS: BP 117/76; PULSE 91; RESP 18; TEMP 98.6
--- NOTE | 2017-06-12 07:46 | HHI.OB ---
Subjective Post Operative Day: 2 Remarks s/p primary LTCD for failed labor induction for GHTN at term (39w2d) Objective Vitals/I&O Vital Signs Date Time Temp Pulse Resp B/P (MAP) Pulse Ox O2 Delivery O2 Flow Rate FiO2 06/11/17 22:00 103 20 136/77 (96) 06/11/17 21:30 98.1 06/11/17 21:30 100 06/11/17 14:53 97.5 06/11/17 14:53 89 16 131/82 (98) Result Diagram: 06/10/171955 Objective Remarks GENERAL: Well-nourished, well-developed patient. CARDIOVASCULAR: Regular rate and rhythm without murmurs, gallops, or rubs. RESPIRATORY: Breath sounds equal bilaterally. No accessory muscle use. ABDOMEN/GI: Abdomen soft, non-tender, bowel sounds present. Incision: Clean, dry and intact. steri-strips in place Fundus: Firm, non-tender at umbilicus. GENITOURINARY: Light bleeding. EXTREMITIES: No cyanosis or edema, non-tender, without signs of DVT. Medications and IVs Current Medications Medications (Trade) Dose Ordered Sig/Demarco Route Start Time Stop Time Status Last Admin (Bicitra Liq) 30 ml PATIENT PARTNER PO 06/10/17 02:45 06/13/17 02:44 Cefazolin Sodium/ Dextrose 50 ml @ 100 mls/hr PATIENT PARTNER IV 06/10/17 02:45 06/13/17 02:44 (NS Flush) 2 ml BID IV FLUSH 06/10/17 09:00 (NS Flush) 2 ml UNSCH PRN IV FLUSH 06/10/17 04:45 (Mylicon Chew) 80 mg QID PRN PO 06/10/17 04:45 (Tylenol) 650 mg Q6H PRN PO 06/10/17 04:45 (Motrin) 600 mg Q6H PRN PO 06/10/17 04:45 06/12/17 06:27 (Percocet 5-325 Mg) 1 tab Q4H PRN PO 06/10/17 04:45 06/11/17 10:35 (Percocet 5-325 Mg) 2 tab Q4H PRN PO 06/10/17 04:45 06/12/17 06:26 (Cristina-Colace) 2 tab Q12H PRN PO 06/10/17 04:45 06/11/17 21:30 (Ambien) 5 mg HS PRN PO 06/10/17 04:45 (Zofran Inj) 4 mg Q6H PRN IV PUSH 06/10/17 04:45 Assessment/Plan Problem List: (1) delivery delivered ICD Codes: O82 - Encounter for delivery without indication Status: Acute (2) Gestational hypertension affecting first ICD Codes: O13.9 - Gestational [-induced] hypertension without significant proteinuria, unspecified trimester Status: Acute Assessment and Plan 31-year-old s/p Primary LTCS at 39w2d for failed IOL for GHTN POD #2 yesterday increase in WBC and drop in H/H; recheck this AM; d/w pt d/c pending those results otherwise meeting all criteria; BP mild range, will plan office f/u this Sunday for BP check; no meds indicated at this time; asymptomatic Discharge Planning possibly today, pending labs Belkis Nolan MD Jun 12, 2017 07:46
[2017-06-12] MEDS ORDERED: OXYC1TAB63 PO (07:48)
[2017-06-12] MEDS ORDERED: PERI PO (07:48)
[2017-06-12] MEDS ORDERED: IBUP1TAB7 PO (07:48)
--- NOTE | 2017-06-12 07:48 | HHI.DCPOC ---
Discharge Care Plan Diagnosis: (1) delivery delivered Your Health Problems Are: delivery Report Symptoms to Your Doctor -Temperature above 100.5 degrees -Redness, of incision or excessive or foul smelling drainage -Unusual pain or calf pain -Increased vaginal bleeding -Painful or difficulty urinating -Feelings of extreme sadness or anxiety after 2 weeks Goals to Promote Your Health * To prevent worsening of your condition and complications * To maintain your health at the optimal level Directions to Meet Your Goals Take your medications as prescribed Follow your dietary instruction Follow activity as directed Ensure plenty of rest for recovery Drink fluids for hydration Keep your appointments as scheduled Take your immunizations and boosters as scheduled If your symptoms worsen call your PCP, if no PCP go to Urgent Care Center or Emergency Room Smoking is Dangerous to Your Health. Avoid second hand smoke Call the 24-hour crisis hotline for domestic abuse at Belkis Nolan MD Jun 12, 2017 07:48
[2017-06-12 08:00] VITALS: BP 117/76; PULSE 91; RESP 18; TEMP 98.6
[2017-06-12] MEDS: SODIUM CHLORIDE 0.9% FLUSH 10 ML FLUSH IV FLUSH SCH (09:24)
[2017-06-12 11:14] LABS: AUTOMATED NEUTROPHIL # 6.6 TH/MM3 (1.8-7.7); BASOPHIL # 0.1 TH/MM3 (0-0.2); BASOPHIL % 0.5 % (0.0-2.0); EOSINOPHIL # 0.3 TH/MM3 (0-0.4); EOSINOPHIL % 2.9 % (0.0-4.0); HEMATOCRIT 26.5 % (35.0-46.0); HEMO FLAGS DIFF FINAL; LYMPHOCYTE # 3.1 TH/MM3 (1.0-4.8); MEAN CELL VOLUME 75.7 FL (80.0-100.0); MEAN CORPUSCULAR HEMOGLOBIN 23.7 PG (27.0-34.0); MEAN CORPUSCULAR HGB CONC 31.3 % (32.0-36.0); MONO % 5.3 % (0.0-8.0); NEUT % 62.3 % (16.0-70.0); PLATELET COUNT 280 TH/MM3 (150-450); RED CELL DISTRIBUTION WIDTH 17.8 % (11.6-17.2); WHITE BLOOD COUNT 10.6 TH/MM3 (4.0-11.0)
== END 2017-06-12 15:26 | disposition home or self-care (01) | DRG 766 ==
LOC: H2EA 17:42 → H1EA 06-10 06:02
PROVIDERS: ADMIT Obstetrics & Gynecology; ATTEND Obstetrics & Gynecology
PROC: 3E0P7VZ Introduction of Hormone into Female Reproductive, Via Natural or Artificial Opening (ICD-10-PCS; principal; 2017-06-06)
PROC: 0U7C7ZZ Dilation of Cervix, Via Natural or Artificial Opening (ICD-10-PCS; 2017-06-08)
PROC: 10907ZC Drainage of Amniotic Fluid, Therapeutic from Products of Conception, Via Natural or Artificial Opening (ICD-10-PCS; 2017-06-09)
PROC: 10D00Z1 Extraction of Products of Conception, Low, Open Approach (ICD-10-PCS; 2017-06-10)
DX: O13.4 Gestational [pregnancy-induced] hypertension without significant proteinuria, complicating childbirth (principal); D64.9 Anemia, unspecified; Z37.0 Single live birth; O99.02 Anemia complicating childbirth; Z3A.38 38 weeks gestation of pregnancy; O61.0 Failed medical induction of labor; O62.2 Other uterine inertia
CPT/HCPCS: 59025; 80053; 80307; 81001; 84550; 85025; 86850; 86900; 86901; 86920; J0131; J0456; J1885; J2175; J2210; J2590; J3010; J7050; J7120